=== PATIENT | male | born 1965 | race Caucasian/White ===

== ENCOUNTER 2018-09-24 12:37 | Emergency (ER) | payer BC ==
[~2018-09-24] VITALS: Ht 170.2 cm; Wt 126.4 kg
[2018-09-24 12:42] VITALS: TEMP 98.6
[2018-09-24] MEDS ORDERED: LIPITOR 10MG10 MG PO (13:22)
[2018-09-24] MEDS ORDERED: GLUCOPHAGE500 MG/TAB PO (13:22)
[2018-09-24 13:49] VITALS: BP 143/92; PULSE 65
== END 2018-09-24 13:49 | disposition home or self-care (01) ==
LOC: COL.ER 12:37
DX: T18.128A Food in esophagus causing other injury, initial encounter (principal); E11.9 Type 2 diabetes mellitus without complications; I10 Essential (primary) hypertension; E78.5 Hyperlipidemia, unspecified; Z87.442 Personal history of urinary calculi; Z98.890 Other specified postprocedural states; Z79.84 Long term (current) use of oral hypoglycemic drugs

== ENCOUNTER → 2020-05-13 | Outpatient (CLI) | payer BC ==
[~2020-05-13] MED LIST: GLUCOPHAGE500 MG/TAB PO; LIPITOR 10MG10 MG PO
== END ==
LOC: COL.VAS 07:57
DX: Z13.6 Encounter for screening for cardiovascular disorders (principal); R60.0 Localized edema

== ENCOUNTER 2022-07-21 07:21 | Day surgery (SDC) | payer BC ==
[~2022-07-21] VITALS: Ht 167.6 cm; Wt 125.3 kg
[2022-07-21 07:52] VITALS: BP 145/95; PULSE 82; TEMP 97.5
[2022-07-21] MEDS ORDERED: JARDIANCE10 PO (08:09)
[2022-07-21] MEDS ORDERED: LOPRESSOR 225 MG/TAB PO (08:11)
[2022-07-21] MEDS ORDERED: PROZAC 20MG20 MG PO (08:11)
[2022-07-21 10:00] VITALS: BP 120/80; PULSE 85
--- NOTE | 2022-07-21 10:00 | NUR ---
PATIENT RETURNS TO [facility] PER CART AND TRANSFERS FROM CART TO RECLINER WITH ON E PERSON ASSIST. IV FLUIDS INFUSING. TEMP 97.4 AND ROOM AIR SATS 96%. PATIENT DENIES ABDOMINAL PAIN OR NAUSEA. CALL LIGHT IN REACH. SPOUSE IN ROOM.
[2022-07-21 10:15] VITALS: BP 132/85; PULSE 80
--- NOTE | 2022-07-21 10:15 | NUR ---
PATIENT TOLERATES SNACK OF CRACKERS AND DIET PEPSI. IV DISCONTINUED AND SITE IS FREE OF REDNESS OR SWELLING. PATIENT DRESSES SELF.
--- NOTE | 2022-07-21 10:30 | NUR ---
DISMISSAL INSTRUCTIONS GIVEN AND PATIENT VOICES UNDERSTANDING OF THESE.
--- NOTE | 2022-07-21 10:33 | NUR ---
DISMISSED TO HOME DRIVEN BY SPOUSE PER PRIVATE VEHICLE AND TAKEN TO THE FRONT DOOR PER WHEELCHAIR AND ASSISTED INTO VEHICLE WITH ALL INSTRUCTIONS IN HAND.
== END 2022-07-21 10:33 | disposition home or self-care (01) ==
LOC: SDCO 07:21
DX: Z12.11 Encounter for screening for malignant neoplasm of colon (principal); I10 Essential (primary) hypertension; E11.69 Type 2 diabetes mellitus with other specified complication; E66.01 Morbid (severe) obesity due to excess calories; Z79.84 Long term (current) use of oral hypoglycemic drugs; Z89.029 Acquired absence of unspecified finger(s); Z79.899 Other long term (current) drug therapy
CPT/HCPCS: J2704; J7030